=== PATIENT | female | born 1980 | race Caucasian/White ===

== ENCOUNTER → 2018-04-20 | Outpatient (CLI) | payer OTHER ==
--- NOTE | 2018-04-20 09:24 | US ---
EXAMINATION TYPE: US venous doppler duplex LE DATE OF EXAM: 04/20/2018 8:51 AM COMPARISON: NONE CLINICAL HISTORY: R22.43, Z91.81, M79.604. SIDE PERFORMED: Bilateral TECHNIQUE: The lower extremity deep venous system is examined utilizing real time linear array sonog lobito with graded compression, doppler sonography and color-flow sonography. VESSELS IMAGED: External Iliac Vein (EIV) Common Femoral Vein Deep Femoral Vein Greater Saphenous Vein * Femoral Vein Popliteal Vein Small Saphenous Vein * Proximal Calf Veins (* superficial vessels) Grayscale, color doppler, spectral doppler imaging performed of the deep veins of the bilateral lower extremities. There is normal flow, compressibility, vascular waveforms. Right Leg: Negative for DVT Left Leg: Negative for DVT Preliminary results phoned to Dr. Mandi Ch immediately following exam per order. IMPRESSION: No ultrasound evidence for acute DVT in either lower extremity.
== END | disposition home or self-care (01) ==
LOC: RADUSMAIN 08:12
PROVIDERS: ATTEND Family Medicine
DX: R22.43 Localized swelling, mass and lump, lower limb, bilateral (principal); M79.604 Pain in right leg; Z91.81 History of falling
CPT/HCPCS: 93970

== ENCOUNTER 2020-12-02 09:56 | Emergency (ER) | payer OTHER ==
[2020-12-02 10:02] VITALS: BP 138/75; PULSE 104; RESP 18; TEMP 98
[2020-12-02] MEDS ORDERED: HYDROcodone/APAP 5-325MG 1 EACH TAB PO STA (10:28)
--- NOTE | 2020-12-02 10:28 | ED ---
Lower Extremity Injury HPI - General Chief Complaint: Extremity Injury, Lower Stated Complaint: R Leg Injury Source: patient Mode of arrival: wheelchair Limitations: no limitations - History of Present Illness Initial Comments: 40-year-old female presenting to emergency Department with chief complaint of right leg pain. Patient states 2 days ago she suffered an injury to her right lower leg. Patient states she went to an urgent care and was splinted. Patient states splint feels too tight and she has noticed some swelling on her foot now. Patient reports she is also on pain but was prescribed 12 tablets of Firth by the urgent care. Patient states she is yet to fill the prescription. Patient states he attempted to call the orthopedic doctor but could not get an due to insurance purposes. Patient states the earliest that she could get in was 1.5 weeks from today. She denies any numbness or tingling to the leg. Patient states she called "[facility]" and was advised to come to the emergency department. - Related Data Home Medications Medication Instructions Recorded Confirmed Gabapentin 800 mg PO TID 12/02/20 12/02/20 Ibuprofen [Motrin] 800 mg PO Q8H 12/02/20 12/02/20 QUEtiapine [SEROquel] 50 mg PO HS 12/02/20 12/02/20 Allergies Allergy/AdvReac Type Severity Reaction Status Date / Time No Known Allergies Allergy Verified 12/02/20 10:43 Review of Systems ROS Statement: Those systems with pertinent positive or pertinent negative responses have been documented in the HPI. ROS Other: All systems not noted in ROS Statement are negative. Past Medical History Additional Past Medical History / Comment(s): nerve pain History of Any Multi-Drug Resistant Organisms: None Reported Past Surgical History: Orthopedic Surgery Additional Past Surgical History / Comment(s): rt knee Past Psychological History: Depression Smoking Status: Current every day smoker Past Alcohol Use History: None Reported Past Drug Use History: None Reported General Exam Limitations: no limitations General appearance: alert, in no apparent distress, obese Head exam: Present: atraumatic, normocephalic, normal inspection Eye exam: Present: normal appearance, PERRL, EOMI Pupils: Present: normal accommodation ENT exam: Present: normal exam, normal oropharynx, mucous membranes moist Neck exam: Present: normal inspection, full ROM Respiratory exam: Present: normal lung sounds bilaterally. Absent: respiratory distress, wheezes Cardiovascular Exam: Present: regular rate, normal rhythm, normal heart sounds Extremities exam: Present: full ROM (Limited range of motion in the right leg due to pain), tenderness (Tenderness over the lateral malleolus of the right ankle), normal capillary refill, other (Palpable DP and PT bilaterally.). Absent: normal inspection (Splint applied to the right leg), pedal edema, joint swelling, calf tenderness Back exam: Present: normal inspection, full ROM. Absent: tenderness, CVA ten derness (R), CVA tenderness (L) Neurological exam: Present: alert, oriented X3 Psychiatric exam: Present: normal affect, normal mood Skin exam: Present: warm, dry, intact, normal color Course Vital Signs 12/02/20 09:59 Temperature 98.0 F Pulse Rate 104 H Respiratory 18 Rate Blood Pressure 138/75 O2 Sat by Pulse 99 Oximetry Procedures - Orthopedic Splinting/Casting Injury #1 Side: right Lower Extremity Injury Location: short leg Lower Extremity Immobilizer: posterior splint, stirrup splint, Melvin wrap, synthetic pre-padded splint Medical Decision Making - Medical Decision Making 40-year-old female presenting to the emergency department with chief complaint of an ankle pain. On physical examination, patient is neurovascularly intact. She did have some swelling of the distal foot. I did remove the old splint and applied a new posterior splint with ankle stirrups. Patient already has crutches. I gave her one Firth for pain. She really has a prescription of 12 tablets of Firth. X-ray reveals a distal fibular fracture. There is also possibility for an old avulsion fracture of the medial malleolus. Patient did report history of old fractures in the right ankle. This is likely related to that. Advised the patient to follow-up with life skills specialist. Advised to rest, ice and elevate. Return parameters discussed with patient was in a standing ago. Case discussed with physician. Disposition Clinical Impression: Fracture of distal end of fibula, Ankle fracture Disposition: HOME SELF-CARE Condition: Stable Instructions (If sedation given, give patient instructions): Ankle Fracture (DC) Additional Instructions: Rest, ice, elevate. Alternate between Tylenol and Motrin for pain control. Follow-up with life skills specialist.Please return to the Emergency Department if symptoms worsen or any other concerns. Is patient prescribed a controlled substance at d/c from ED?: No Referrals: Mandi Ch MD [Primary Care Provider] - 1-2 days Desean Luna MD [STAFF PHYSICIAN] - 1-2 days Time of Disposition: 11:06
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
== END 2020-12-02 11:09 | disposition home or self-care (01) ==
LOC: EC 09:56
DX: S82.831A Other fracture of upper and lower end of right fibula, initial encounter for closed fracture (principal); F32.9 Major depressive disorder, single episode, unspecified; F17.200 Nicotine dependence, unspecified, uncomplicated; Z79.899 Other long term (current) drug therapy; W19.XXXA Unspecified fall, initial encounter
CPT/HCPCS: 29515; 99283

== ENCOUNTER 2021-09-29 15:54 | Emergency (ER) | payer OTHER ==
[2021-09-29 16:49] VITALS: TEMP 98
--- NOTE | 2021-09-29 17:42 | XR ---
EXAMINATION TYPE: XR ankle complete RT DATE OF EXAM: 09/29/2021 COMPARISON: NONE HISTORY: Ankle and knee pain TECHNIQUE: 3 views FINDINGS: Ankle mortise is anatomic. There is some mild soft tissue swelling around the ankle. I see no fracture nor dislocation. There is mild spurring of the anterior and posterior malleolus. IMPRESSION: No fracture. Mild osteoarthritis and mild soft tissue swelling.
--- NOTE | 2021-09-29 17:52 | XR ---
EXAMINATION TYPE: XR knee complete RT DATE OF EXAM: 09/29/2021 COMPARISON: NONE HISTORY: Ankle pain TECHNIQUE: 3 views FINDINGS: There is screws and wire suture fixing old fracture of the patella. I see no acute fracture nor dislocation. Joint spaces are fairly normal. There is no sign of a joint effusion. IMPRESSION: No acute abnormality of the right knee.
[2021-09-29] MEDS ORDERED: ACET/COD 300 MG/30 MG STARTER PACK 6 TAB BTL PO STA (18:52)
--- NOTE | 2021-09-29 18:52 | ED ---
General Adult HPI - General Chief complaint: Extremity Injury, Lower Stated complaint: R leg pain Time Seen by Provider: 09/29/21 18:34 Source: family Mode of arrival: ambulatory - History of Present Illness Initial comments: Dictation was produced using [employer] dictation software. please excuse any grammatical, word or spelling errors. Chief Complaint: 41-year-old female chronically pain presents with acute knee pain History of Present Illness: 41-year-old female she presents with knee pain and ankle pain. Patient sleepwalking. She has history of sleepwalking was sleepwalking any other night. She woke up on the floor with knee and ankle pain. Patient has history of patellar fracture status post patellar surgery. She also has history of chronic ankle pain. She had an x-ray performed in her PCPs office in one week ago and was told that she might have a small fracture. The ROS documented in this emergency department record has been reviewed and confirmed by me. Those systems with pertinent positive or negative responses have been documented in the HPI. All other systems are other negative and/or noncontributory. PHYSICAL EXAM: General Impression: Alert and oriented x3, not in acute distress HEENT: Normocephalic atraumatic, extra-ocular movements intact, pupils equal and reactive to light bilaterally, mucous membranes moist. Cardiovascular: Heart regular rate and rhythm Chest: Able to complete full sentences, no retractions, no tachypnea Musculoskeletal: Pulses present and equal in all extremities, no peripheral edema Right lower extremity. There is a anterior patellar knee scar does clean dry and intact. No obvious effusion. Right knee is similar in size to the left knee. Patient has diffuse tenderness. She has diffuse palpatory ankle pain bilaterally. Motor: no focal deficits noted Neurological: CN II-XII grossly intact, no focal motor or sensory deficits noted Skin: Intact with no visualized rashes Psych: Normal affect and mood ED course: 41-year-old female presents to the emergency department for acute on chronic knee and ankle pain. X-rays unremarkable. Vital signs are stable. Patient discharged advised to follow-up with clinical specialist. - Related Data Home Medications Medication Instructions Recorded Confirmed Gabapentin 800 mg PO TID 12/02/20 12/02/20 Ibuprofen [Motrin] 800 mg PO Q8H 12/02/20 12/02/20 QUEtiapine [SEROquel] 50 mg PO HS 12/02/20 12/02/20 Allergies Allergy/AdvReac Type Severity Reaction Status Date / Time No Known Allergies Allergy Verified 09/29/21 16:33 Review of Systems ROS Statement: Those systems with pertinent positive or pertinent negative responses have been documented in the HPI. ROS Other: All systems not noted in ROS Statement are negative. Past Medical History Additional Past Medical History / Comment(s): nerve pain History of Any Multi-Drug Resistant Organisms: None Reported Past Surgical History: Orthopedic Surgery Additional Past Surgical History / Comment(s): rt knee Past Psychological History: Depression Smoking Status: Current every day smoker Past Alcohol Use History: None Reported Past Drug Use History: None Reported Course Vital Signs 09/29/21 16:45 Temperature 98.0 F Pulse Rate 92 Respiratory 19 Rate Blood Pressure 146/101 O2 Sat by Pulse 97 Oximetry Disposition Clinical Impression: Ankle pain, Knee pain Disposition: HOME SELF-CARE Condition: Fair Instructions (If sedation given, give patient instructions): Arthralgia (ED) Is patient prescribed a controlled substance at d/c from ED?: No Referrals: Celso Jerome MD [Medical Doctor] - 1-2 days
[2021-09-29 19:15] VITALS: BP 133/82; PULSE 89; RESP 18
== END 2021-09-29 19:18 | disposition home or self-care (01) ==
LOC: EC 15:54
DX: M25.561 Pain in right knee (principal); M25.571 Pain in right ankle and joints of right foot; F32.A Depression, unspecified; F17.200 Nicotine dependence, unspecified, uncomplicated; Z79.899 Other long term (current) drug therapy
CPT/HCPCS: 99283

== ENCOUNTER → 2023-07-10 | Outpatient (CLI) | payer OTHER ==
[2023-07-10 09:03] LABS: Basophils # (A) 0.05 X 10*3/uL (0.00-0.10); Basophils % (A) 0.7 %; Eosinophils # (A) 0.16 X 10*3/uL (0.04-0.35); Eosinophils % (A) 2.4 %; HGB 12.3 d/dL (12.0-15.0); Lymphocytes # (A) 2.05 X 10*3/uL (0.90-5.00); Lymphocytes % (A) 30.4 %; MCH 29.4 pg (27.0-32.0); MCHC 31.5 d/dL (32.0-37.0); MCV 93.3 FL (80.0-97.0); Monocytes # (A) 0.59 X 10*3/uL (0.20-1.00); Monocytes % (A) 8.8 %; NRBC Per 100 WBC 0 X 10*3/uL (0.00-0.01); Neutrophils # (A) 3.88 X 10*3/uL (1.80-7.70); Neutrophils % (A) 57.6 %; Platelet Count 197 X 10*3/uL (140-440); RBC 4.18 X 10*6/uL (4.10-5.20); RDW 11.8 % (11.5-14.5); WBC 6.74 X 10*3/uL (4.50-10.00)
[2023-07-10 09:38] LABS: Appearance,Urine Cloudy (Clear); Bilirubin,Urine Negative (Negative); Blood,Urine Negative (Negative); Color,Urine Yellow (Yellow); Ketones,Urine Negative (Negative); Nitrite,Urine Negative (Negative); Specific Gravity,Urine 1.026 (1.001-1.030)
[2023-07-10 10:34] LABS: ALT 29 U/L (8-44); AST 25 U/L (13-35); Albumin 4.8 d/dL (3.8-4.9); Albumin/Globulin Ratio 2.53 Ratio (1.60-3.17); Alkaline Phosphatase 67 U/L (41-126); BUN/Creat Ratio 14.71 Ratio (12.00-20.00); Blood Urea Nitrogen 10.3 mg/dL (9.0-27.0); Calcium 9.6 mg/dL (8.7-10.3); Carbon Dioxide 28.9 mmol/L (21.6-31.8); Chloride 102 mmol/L (96-109); Globulin 1.9 d/dL (1.6-3.3); Glucose 83 mg/dL (70-110); Sodium 142 mmol/L (135-145); Total Bilirubin 0.3 mg/dL (0.3-1.2); Total Protein 6.7 d/dL (6.2-8.2)
[2023-07-10 10:58] LABS: Bacteria,Urine 3+ (None Seen); Yeast (UA) None Seen (None Seen)
[2023-07-10 14:13] LABS: Hepatitis B Surface Antigen Nonreactive; Hepatitis C IgG Antibody Nonreactive
== END | disposition home or self-care (01) ==
LOC: LABMAIN 00:04
PROVIDERS: ATTEND Psychologist Clinical
DX: F11.20 Opioid dependence, uncomplicated (principal)
CPT/HCPCS: 80053; 81001; 81025; 85025; 86780; 86803; 87340

== ENCOUNTER 2023-10-05 10:33 | Emergency (ER) | payer OTHER ==
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
[2023-10-05 11:06] VITALS: RESP 18; TEMP 98
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
[2023-10-05 12:38] VITALS: BP 128/76; PULSE 82
== END 2023-10-05 12:14 | disposition home or self-care (01) ==
LOC: EC 10:33
DX: S39.012A Strain of muscle, fascia and tendon of lower back, initial encounter (principal); S16.1XXA Strain of muscle, fascia and tendon at neck level, initial encounter; Z86.59 Personal history of other mental and behavioral disorders; V89.2XXA Person injured in unspecified motor-vehicle accident, traffic, initial encounter; Y92.410 Unspecified street and highway as the place of occurrence of the external cause
CPT/HCPCS: 72050; 72100; 99284

== ENCOUNTER → 2023-12-03 | Outpatient (CLI) | payer OTHER ==
--- NOTE | 2023-12-03 15:21 | XR ---
EXAMINATION TYPE: XR thoracic spine 2V DATE OF EXAM: 12/03/2023 COMPARISON: None HISTORY: Pain TECHNIQUE: 3 view thoracic spine FINDINGS: There are 12 thoracic type vertebral bodies. Pedicles are intact. Disc heights are preserve d. Vertebral body heights are preserved. Alignment is unremarkable. IMPRESSION: 1. No acute osseous abnormality thoracic spine
== END | disposition home or self-care (01) ==
LOC: RADMRIMAIN 13:27
PROVIDERS: ATTEND Internal Medicine
DX: S37.001A Unspecified injury of right kidney, initial encounter (principal); M54.6 Pain in thoracic spine; M54.50 Low back pain, unspecified
CPT/HCPCS: 72070